=== PATIENT | male | born 1995 | race Caucasian/White ===

== ENCOUNTER 2023-07-05 00:47 | Emergency (ER) | payer OTHER, SELFPAY ==
--- NOTE | ~2023-07-05 | XR_ITS ---
EXAMINATION: XR RIBS, RIGHT CLINICAL INFORMATION: Right sided chest pain. Concern for rib fracture. COMPARISON: None available. TECHNIQUE: 3 views of the right ribs were obtained. FINDINGS: Lungs are clear. No consolidation, pneumothorax, or pleural effusion. The cardiomediastinal silhouette and pulmonary vasculature are normal. Osseous structures are unremarkable. Ribs are intact. No fractures are identified. XR/XR ribs RT min 3V w CXR1V IMPRESSION: Unremarkable examination.
[2023-07-05 00:47] VITALS: BP 120/77; PULSE 100; RESP 18; TEMP 36.7; O2SAT 97; BMI 37.2
--- NOTE | 2023-07-05 01:13 | MHC.EDTECH ---
Patient brought into triage area,strep and sars swabs obtained and sent to lab.
[2023-07-05 01:32] LABS: IDNOW Serial# 6674DD1D; Strep A Nucleic Acid Negative (Negative)
[2023-07-05 01:58] LABS: Influenza A PCR NEGATIVE (Negative); Influenza B PCR NEGATIVE (Negative); Resp Syncy Virus RNA Qual PCR NEGATIVE (Negative); SARS COV2 PCR INHOUSE NEGATIVE (Negative)
--- NOTE | 2023-07-05 03:45 | PC.NURSE ---
xray completed at this time.
--- NOTE | 2023-07-05 03:51 | ED.GENADULT ---
HPI - General Adult General Chief complaint: General Medical Stated complaint: sharp side pain Time Seen by Provider: 07/05/23 03:14 Source: patient Mode of arrival: ambulatory Limitations: no limitations History of Present Illness HPI narrative: 28 yo male with no sig PMH here with atraumatic R rib pain not worse with breathing no recent URIs but notes if he moves a certain way or cough/sneezes he has severe pain on R side of ribs. No recent travel, procedures. He is fine otherwise unless those things happen complaint: rib pain Onset (ago): day(s) (3) Location: chest Radiation: non-radiation Severity: moderate Quality: stabbing Pain Consistency: intermittent Relieving factors: none Exacerbating factors: other (movement, cough, sneeze) Associated symptoms: denies other symptoms Treatments prior to arrival: none Related Data Previous Rx's ?Medication ?Instructions ?Recorded cyclobenzaprine 10 mg tablet 10 mg PO TID PRN muscle spasm #20 07/05/23 tabs Allergies Allergy/AdvReac Type Severity Reaction Status Date / Time No Known Allergies Allergy Verified 07/05/23 00:51 [No Known Allergies*] Review of Systems Review of Systems: Constitutional : No Weight loss, No Fever, No Chills ENT/Mouth : No sore throat, No Rhinorrhea Eyes: No Eye Pain, No Swelling Cardiovascular : pos Chest Pain, no SOB, no Dyspnea on Exertion, No Orthopnea, No Edema, No Palpitations Respiratory : No Cough, No Sputum Gastrointestinal : no Nausea, No Vomiting, No Diarrhea, No abdominal Pain, No Hematochezia, No Melena Genitourinary : No Dysuria, No Urinary Frequency Musculoskeletal : No joint pain, No Myalgias, No Joint Swelling Skin : No Skin Lesions, No rash Neuro : No Weakness, No Numbness, No Dizziness, No Headache Psych : No Anxiety/Panic, No Depression All other systems reviewed and are negative [facility] Past Medical History Attestation statement: The following information was validated with the patient. Source: old records reviewed Medical History No pertinent past medical history Social History Social History (Updated 07/05/23 @ 03:52 by Krista Carvalho DO) Patient Tobacco Use Status: Never used Tobacco Advance Directives: No Advance Directives Information Provided: No Do you have a plan to hurt others: No Plan Physical Exam ED Vital Signs: Vital Signs - 24 hr 07/05/23 00:47 07/05/23 04:07 Temperature 98.0 F 97.5 F Pulse Rate 100 71 Respiratory Rate 18 17 Blood Pressure 120/77 121/64 Pulse Oximetry 97 97 Oxygen Delivery Method Room Air Room Air BMI result Body Mass Index 37.2 Appearance: Alert. Oriented X3. No acute distress. Eyes: Pupils equal, round and reactive to light. ENT: Pharynx normal. Neck: Normal inspection. Neck supple. CVS: Normal heart rate and rhythm. Pulses normal. Respiratory: No respiratory distress. Breath sounds normal. Abdomen: Soft and nontender. Skin: Skin warm and dry. Normal skin color. Normal skin turgor. Extremities: No lower extremity edema. No calf ttp Neuro: Oriented X 3. No motor deficit. No sensory deficit. Medical Decision Making Medical Decision Making [facility] Narrative: 28 yo male no sig PMH here with atraumatic R rib pain worse with coughing and sneezing denies known rib issues or trauma no dyspnea no infectious symptoms pain is not pleuritic has no risk factors for VTE. at this time will obtian rib films seems atypical to be anything ACS or VTE given it is just related to movement and coughing/sneezing Differential Diagnosis Differential Diagnoses: The differential diagnosis associated with the presentation includes rib strain, contusion, fracture Admission/Observation Consideration of admission/observation: Escalation of care including admission/observation considered no acute findings VS stable Lab Data [facility] Lab Attestation statement: I reviewed the patient's lab results. Labs: Lab Results 07/05/23 07/05/23 Range/Units 01:11 01:12 Influenza Type A (PCR) NEGATIVE (Negative) Influenza Type B (PCR) NEGATIVE (Negative) RSV RNA Qual (PCR) NEGATIVE (Negative) SARS-CoV-2 RNA (RT-PCR) NEGATIVE (Negative) S. pyogenes GrpA RENATA Negative (Negative) Independent Interpretation I performed an independent interpretation of an: Plain X-Ray (no acute findings at this time) Radiology Impression Discussion of test interpretation with radiology: I have reviewed the radiologist's reading. Prescription Management I considered prescription management with: Pain Medication and Other Discharge Plan Discharge Clinical Impression: Painful rib Patient Disposition: Home, Self-Care Instructions: Chest Pain (ED) Additional Instructions: return for worsening symptoms shortness of breath, vomiting, faitning, increased pain your xray and swabs were all normal suspect this is musculoskeletal Prescriptions: New cyclobenzaprine 10 mg tablet 10 mg PO TID PRN (Reason: muscle spasm) Qty: 20 0RF Stand Alone Forms: Work/School Release Print Language: Salvadorean
[2023-07-05 04:07] VITALS: BP 121/64; PULSE 71; RESP 17; TEMP 36.4; O2SAT 97
[2023-07-05 05:17] VITALS: BP 133/77; PULSE 87; RESP 16; TEMP 36.6; O2SAT 98
== END 2023-07-05 05:18 | disposition home or self-care (01) ==
PROVIDERS: Emergency Provider Emergency Medicine
DX: R07.81 Pleurodynia (principal); R07.9 Chest pain, unspecified; Z03.818 Encounter for observation for suspected exposure to other biological agents ruled out
CPT/HCPCS: 0241U; 71101; 87651; 99283